=== PATIENT | male | born 1990 | race Caucasian/White ===

== ENCOUNTER → 2018-02-04 14:10 | Outpatient (CLI) | payer OTHER, SELFPAY ==
[2018-02-04 15:41] LABS: Absolute Lymphocyte Count 1.43 X10^3/ul (0.83-4.51); Absolute Neutrophil Count 1.9 X10^3/uL (2.0-7.7); Basophil# 0.01 X10^3/uL; Basophil% 0.3 % (0-1); Eosinophil# 0.08 X10^3/uL; Eosinophils% 2.1 % (0-5); Hematocrit 43.8 % (40-54); Hemoglobin 14.3 g/dl (13.0-16.5); Lymphocyte # 1.43 X10^3/ul (4.0); Lymphocyte % 37.3 % (19-41); Mean Corp Hgb Conc 32.6 g/gl (32-36); Mean Corpuscular Volume 88.8 fL (80-94); Mean Platelet Vol. 10.8 fl (6.2-12.0); Monocyte# 0.37 X10^3/uL; Monocyte% 9.7 % (0-10); Neutrophil # 1.94 X10^3/uL (2.7-7.7); Neutrophil % 50.6 % (47-70); Platelet Count 186 K/mm3 (150-450); RBC Distribution Width CV 12.8 % (11.6-14.6); RBC Distribution Width SD 41.2 fl (35.1-43.9); Red Blood Count 4.93 M/mm3 (4.6-6.2); White Blood Count 3.8 K/mm3 (4.4-11.0)
[2018-02-04 15:44] LABS: Vitamin B12 893 pg/mL (211-911); Vitamin D,25 Hydroxy 19.9 ng/mL (29.95-100.01)
[2018-02-04 15:47] LABS: ALB/GLOB Ratio 1.5 RATIO (0.9-2.4); AST(SGOT) 22 U/L (15-37); Alanine Aminotransfer ALT/SGPT 35 U/L (16-61); Albumin, Serum 4.2 g/dL (3.2-5.0); Alkaline Phosphatase 89 U/L (45-117); Anion Gap 8 (5-15); BUN 6 mg/dL (7-18); BUN/Creat Ratio 6.1 RATIO (10-20); Calcium,Total 8.8 mg/dL (8.5-10.1); Chloride 101 mmol/L (98-107); Creatinine, Serum 0.98 mg/dL (0.70-1.30); EST Glomerular Filtration Rate 96 mL/min (>60); Est Glom Filt Rate - Afr Amer 116 mL/min (>60); Globulin 2.8 g/dL (2.2-4.2); Glucose 85 mg/dL (74-106); Iron 132 ug/dL (65-175); Potassium 3.6 mmol/L (3.5-5.1); Sodium Level 139 mmol/L (136-145); Thyroid Stim Hormone (TSH) 1.08 uIU/mL (0.358-3.74)
[2018-02-04 16:01] LABS: POSITIVE COUNT NO; POSITIVE DIFFERENTIAL NO; POSITIVE MORPHOLOGY NO
== END ==
PROVIDERS: Family Provider Family Medicine; PCP Family Medicine; Referring Provider Family Medicine; Visit Provider Family Medicine
DX: R53.83 Other fatigue (principal)
CPT/HCPCS: 36415; 80053; 82306; 82607; 83540; 84443; 85025

== ENCOUNTER → 2018-03-05 07:11 | Outpatient (CLI) | payer OTHER, SELFPAY ==
--- NOTE | 2018-03-05 07:13 | MRI_ITS ---
STUDY: MRI BRAIN WITHOUT CONTRAST REASON FOR EXAM: Male, 27 years old. mental confusion, frequent headaches, disorientation. TECHNIQUE: Standardized multiplanar fat and water weighted pulse sequences were obtained. COMPARISON: None. FINDINGS: Normal size of the ventricles and extra-axial spaces for the patient's age. Normal white matter tracts of the supratentorial brain. Normal bilateral basal ganglia. Normal thalami. There is no extra-axial fluid accumulation. Normal flow voids within the major intracranial circulation suggesting patency by spin echo criteria. Normal sella turcica, pituitary gland, infundibular stalk, optic chiasm and hypothalamus. Normal tectal plate and pineal gland. Normal midbrain, francisco and medulla. Normal cerebellum. Normal basal cisterns. Normal bilateral temporal bones. Normal bilateral internal auditory canals. No demonstrated orbital abnormality, within the constraints of a routine brain study. Normal visualized paranasal sinuses. Normal calvarium and skull base. Normal visualized soft tissue structures. Normal visualized upper cervical spine. MRI/Brain without Contrast IMPRESSION: Normal unenhanced MRI of the brain. Electronically Signed: Andrea Conley MD at 15:56 EST Tel , Service support ,
--- OUTSIDE RECORDS SUMMARY | 2018-04-21 05:33 | XMS RPT_ITS ---
:1990 Author Organization [facility] Address [address] [place] [address] Phone Care Team Providers Name Role Phone Janey Mejias Unavailable Unavailable Conditions or Problems Problem Name Problem Onset Status Entry Provider Comment Standard Annotate Code Date Date Description Sinusitis - 36001710 Active Brendan Thomas Acute sinusitis acute (SNOMED CT) / Meliton HURTADO Sinus 02547973 Active Brendan Thomas Congestion of congestion (SNOMED CT) / Meliton HURTADO nasal sinus Rhinosinusit 079756995 Active Bakari D Acute is, acute (SNOMED CT) / Rashaun HUTRADO rhinosinusitis Sore throat 196762098 Active Bakari Matt Pain in throat (acute) (SNOMED CT) / Rashaun HURTADO Medications Medication Instructions Start Stop Generic Name [facility] Provider Date Date AMOXICILLIN 500 2 capsules twice AMOXICILLIN 02619163511 Brendan M MG CAPS daily 7 Meliton HURTADO AMOXICILLIN-POT Take one tab AMOXICILLIN-POT 80151622036 Bakari D CLAVULANATE Twice daily CLAVULANATE Rashaun HURTADO 875-125 MG TABS CLARITIN 10 MG as directed LORATADINE 87049803330 Bakari D CAPS 8 Rashaun HURTADO NEXIUM 24HR as directed ESOMEPRAZOLE 80911110707 Bakari D TBEC 8 MAGNESIUM TBEC Rashaun HURTADO Medications Administered No information available. Allergies, Adverse Reactions, Alerts Observed no known allergies at Results Date Name Value Unit Range Flag Description Office Visit: UC: Sore Throat RAPID STREP negative Streptococcus pyogenes DNA [Presence] in Throat by Probe and target amplification method Office Visit: uc: sinusitis MEDS REVIEW Done Documentation of current medications (procedure) FALLRSKASSES No Fall risk assessment ORALTOBACUSE Never Tobacco smoking status NHIS SMOK STATUS Never smoker Tobacco use [facility] Plan of Care Type Date Detail Appointment 04:30 PM Brendan HURTADO, [address] [place] [address], [address], [place], [address], Patient education SINUSITIS Procedures Code Procedure Name Date Entry Date CPT-20569 Rapid Strep (Office) Vital Signs Date Name Value Unit Description BMI (Body Mass Index) 23.46 kg/m2 Body Mass Index [Ratio] Body Temperature 98.3 [degF] temperature E&M BP Diastolic 72 mm[Hg] blood pressure, diastolic - 8462-4 BP Systolic 96 mm[Hg] blood pressure, systolic - 8480-6 Heart Rate 88 /min pulse rate E&M - 8867-4 Height 72 [in_us] height E&M - 8302-2 Respiratory Rate 18 /min respiratory rate E&M - 9279-1 Weight Measured 173 [lb_av] weight E&M - 3141-9
--- OUTSIDE RECORDS SUMMARY | 2018-04-21 05:33 | XMS RPT_ITS ---
:1990 Author Organization [employer] [facility] Address [address] [place] [address] Phone Care Team Providers Name Role Phone Janey Mejias Unavailable Unavailable Conditions or Problems Problem Name Problem Onset Status Entry Provider Comment Standard Annotate Code Date Date Description Sinusitis - 44309029 Active Brendan Thomas Acute sinusitis acute (SNOMED CT) / Meliton HURTADO Sinus 71581446 Active Brendan Thomas Congestion of congestion (SNOMED CT) / Meliton HURTADO nasal sinus Rhinosinusit 766738508 Active Bakari D Acute is, acute (SNOMED CT) / Rashaun HURTADO rhinosinusitis Sore throat 456912056 Active Bakari Matt Pain in throat (acute) (SNOMED CT) / Rashaun HURTADO Medications Medication Instructions Start Stop Generic Name [facility] Provider Date Date AMOXICILLIN 500 2 capsules twice AMOXICILLIN 02973088171 Brendan M MG CAPS daily 7 Meliton HURTADO AMOXICILLIN-POT Take one tab AMOXICILLIN-POT 63436322118 Bakari D CLAVULANATE Twice daily CLAVULANATE Rashaun HURTADO 875-125 MG TABS CLARITIN 10 MG as directed LORATADINE 70504286342 Bakari D CAPS 8 Rashaun HURTADO NEXIUM 24HR as directed ESOMEPRAZOLE 48223339335 Bakari D TBEC 8 MAGNESIUM TBEC Rashaun [...] NHIS SMOK STATUS Never smoker Tobacco use [facility] Plan of Care Type Date Detail Patient education SINUSITIS Procedures Code Procedure Name Date Entry Date CPT-63374 Rapid Strep (Office) Vital Signs Date Name [...]
--- OUTSIDE RECORDS SUMMARY | 2018-04-21 05:34 | XMS RPT_ITS ---
:1990 Author Organization [facility] Care Team Providers Name Role Phone Bipin Cunningham Attending Unavailable Bipin Cunningham Referring Unavailable Sona Craft Primary Care Unavailable Bipin Cunningham Attending Unavailable Bipin Cunningham Referring Unavailable Sona Craft Primary Care Unavailable JOAN ALTAMIRANO Attending Unavailable Bipin Cunningham Primary Care Unavailable PROBLEMS PROBLEMS No Problem Records FoundPROCEDURES PROCEDURES No Procedure Records FoundRESULTS RESULTS EMERGENCY DEPARTMENT Observed: 03/31/2018 Status: F Source: [place] SUMMARY 3:43 AM [facility] Medical Records Department [address] [place] [address] Emergency Department Summary 03/31/18 0338 MR#: [id number] Acct: [id number] Name: TAE DURAN Rep #: [id number] : 1990 28 From: Joan Altamirano MD PCP: Bipin Cunningham MD Status: REG ER History of Present Illness Chief Complaint: Headache Informant: Patient Onset: 2 Timing: Continuous Quality: throbbing Location: right fronto-temporal, and retroorbital Current Severity: Severe Maximum Severity: Severe Worsened by: light Relieved by: nothing, not by Imitrex Associated Symptoms: no n/v/vision chg, no periph neuro sx Narrative: Patient was taking minocycline for a couple of months and developed these headaches which is a possible side effect, he was recently switched to doxycycline and still having the headaches. He has undergone several encounters with his PCP, including a workup that includes an MRI that was unremarkable. He was placed on Imitrex, sometimes it helps his discomfort and other times it does not, he took 2 pills about 24 hours apart in the past 2 days but he cannot get this headache to go away. No medications in the last 8 hours. There are no new features or symptoms. - Past Medical History (1) Rosacea Status: Chronic Past Medical History - Allergies and Home Meds Allergies/Adverse Reactions: Allergies No Known Allergies Allergy (Verified 03/17/13 10:18) Primary Care Physician: Sona Craft MD [STAFF PHYSICIAN] - Smoking Status: Never smoker Drugs: None Review of Systems General: Reports: Malaise. Denies: Chills, Fever, Sweats Eyes: Denies: Visual changes - bilaterally, Diplopia ENT: Denies: Rhinorrhea, Sore throat Cardiovascular: Denies: Chest pain, Palpitations Respiratory: Denies: Dyspnea, Cough, Dyspnea on exertion Gastrointestinal: Denies: Abdominal pain, Nausea, Vomiting, Diarrhea, Melena, Hematochezia Genitourinary: Denies: Dysuria, Hematuria, Frequency Musculoskeletal: Denies: Neck pain, Back pain, Extremity Pain Skin: Denies: Rash Neurological: Reports: Headache. Denies: Weakness, Numbness Physical Exam Vital Signs/Narrative: Vital Signs 03/31/18 03:22 75 15 128/83 H 97 03/31/18 01:34 96.9 F L 81 18 138/85 H 99 Inital Vital Signs reviewed: Yes General: Well nourished, Well developed Head: Normocephalic, Atraumatic Eyes: Perrl, EOMI, - - Mild photophobia bilaterally ENT: Moist mucous membranes, No rhinorrhea Neck: Supple, Nontender, No lymphadenopathy Cardiovascular: Regular rate, Regular rhythm, No murmurs Respiratory: No distress, CTA bilaterally, Chest nontender Back: Nontender, Normal Inspection Extremities: Nontender, No edema Skin: Normal color, No rash Neurological: Alert, Oriented x3, Cranial nerves II-XII grossly intact, Normal Strength, Normal Sensation, Normal Gait Psychological: Normal affect Diagnostic/Tx/Re-eval - Medical Decision Making I do not think further emergent workup is indicated given the history. Patient agrees. IV was placed he was given fluid, Toradol, Reglan and his headache is completely gone on reevaluation. He is comfortable going home. Will prescribe him Reglan to use as needed and have him follow-up with his doctor. ED Disposition - Plan for ED Patient: Disposition: Home or Assisted Living Chief Complaint: Headache Diagnosis: Migraine headache Instructions: ED Headache Migraine Prescriptions: Metoclopramide [Reglan] 10 mg PO Q6H PRN PRN #15 tab PRN Reason: headache/nausea Referrals: Sona Craft MD [STAFF PHYSICIAN] - 3-5 Days if not improving What to do if you have Problems For any increased pain, shortness of breath, bleeding, nausea or vomiting, chest pain, or any unexpected problems, contact your Primary Care Provider. Call [facility] ([phone]) or report to the closest Emergency Room. Call 911 if necessary. 03/31/18 0343 <Electronically signed by Joan Altamirano MD> Date Joan Yarbroughignnorberto Signature (If Indicated): Date CC: Bipin Cunningham MD BRAIN WITHOUT Observed: 03/05/2018 Status: F Source: [place] CONTRAST 7:13 AM [facility] Imaging Services [address] [place] [address] Brain without Contrast MR#: [id number] Acct: [id number] Name: TAE DURAN Rep #: [id number] : 1990 M 27 From: Andrea Conley PCP: Sona Craft MD Status: REG CLI Study: Brain without Contrast Date of Exam: 03/05/18 Exam# [id number] Ordering Dr: Surjit Cunningham MD STUDY: MRI BRAIN WITHOUT CONTRAST REASON FOR EXAM: Male, 27 years old. mental confusion, frequent headaches, disorientation. TECHNIQUE: Standardized multiplanar fat and water weighted pulse sequences were obtained. COMPARISON: None. FINDINGS: Normal size of the ventricles and extra-axial spaces for the patient's age. Normal white matter tracts of the supratentorial brain. Normal bilateral basal ganglia. Normal thalami. There is no extra-axial fluid accumulation. Normal flow voids within the major intracranial circulation suggesting patency by spin echo criteria. Normal sella turcica, pituitary gland, infundibular stalk, optic chiasm and hypothalamus. Normal tectal plate and pineal gland. Normal midbrain, francisco and medulla. Normal cerebellum. Normal basal cisterns. Normal bilateral temporal bones. Normal bilateral internal auditory canals. No demonstrated orbital abnormality, within the constraints of a routine brain study. Normal visualized paranasal sinuses. Normal calvarium and skull base. Normal visualized soft tissue structures. Normal visualized upper cervical spine. MRI/Brain without Contrast IMPRESSION: Normal unenhanced MRI of the brain. Electronically Signed: Andrea Conley MD at 15:56 EST Tel , Service support , CC: Sona Craft MD; Bipin Cunningham MD Top Tile Decorator: Signed VITAMIN B12 Collected: 02/04/2018 Status: F Source: [place] [address]:19 PM [facility] TYPE CODE TESTS RESULT OUT OF RANGE REFERENCE UNITS LAB L503.0105 211-911 pg/mL Normal Vitamin B12 893 Performed By: #### L503.0105, L506.1000, L500.4050, L501.9520, L503.6150, L100.0100 #### [facility] [address] [place], [address] VITAMIN D,25 HYDROXY Collected: 02/04/2018 Status: F Source: [place] 2:19 PM [facility] TYPE CODE TESTS RESULT OUT OF REFERENCE UNITS RANGE LAB L506.1000 29.95-100.01 ng/mL Low Vitamin D 19.9 25-OH Result Comment: Vitamin D 25(OH) Status Range Deficiency <20 ng/mL (50nmol/L) Insuffciency 20 - 30 ng/mL (50 - 75 nmol/L) Sufficiency 30 - 100 ng/mL (75 - 250 nmol/L) Toxicity >100 ng/mL (>250 nmol/L) Performed By: #### L503.0105, L506.1000, L500.4050, L501.9520, L503.6150, L100.0100 #### [facility] [address] [place], [address] COMPREHENSIVE METABOLIC Collected: 02/04/2018 Status: F Source: [place] [facility] 2:19 PM [facility] TYPE CODE TESTS RESULT OUT OF RANGE REFERENCE UNITS LAB L501.0100 74-106 mg/dL Normal GLU 85 Result Comment: Please note revised GLUCOSE reference range effective 2017. LAB L501.1000 7-18 mg/dL Low BUN 6 LAB L501.1100 0.70-1.30 mg/dL Normal CREAT,SERUM 0.98 Result Comment: The validity of the calculated GFR AND GFRAA in patients over 70 years has not been determined. Clinical correlation is essential. LAB L501.1110 >60 mL/min Normal EST GFR 96 Result Comment: Non- GFR Calc LAB L501.1115 >60 mL/min Normal EST GFR - AA 116 Result Comment: GFR Calc LAB L501.1300 10-20 RATIO Low BUN/CRE 6.1 LAB L501.1500 6.4-8.2 g/dL Normal T PROT 7.0 LAB L501.1800 3.2-5.0 g/dL Normal ALB 4.2 LAB L501.1950 2.2-4.2 g/dL Normal GLOB 2.8 LAB L501.2000 0.9-2.4 RATIO Normal A/G 1.5 LAB L501.2200 8.5-10.1 mg/dL Normal CA 8.8 LAB L501.4100 15-37 U/L Normal AST 22 LAB L501.4305 45-117 U/L Normal ALK P 89 LAB L501.4405 16-61 U/L Normal ALT 35 LAB L501.4600 0.20-1.00 mg/dL Normal T BILI 0.90 LAB L501.5300 136-145 mmol/L Normal NA 139 LAB L501.5600 3.5-5.1 mmol/L Normal K 3.6 LAB L501.5900 98-107 mmol/L Normal CL 101 LAB L501.6100 21.0-32.0 mmol/L Normal CO2 30.0 LAB L501.6200 5-15 Normal GAP 8 Performed By: #### L503.0105, L506.1000, L500.4050, L501.9520, L503.6150, L100.0100 #### [facility] [address] [place], [place], [id number] THYROID STIM HORMONE Collected: 02/04/2018 Status: F Source: [place] ([place]) 2:19 PM [facility] TYPE CODE TESTS RESULT OUT OF RANGE REFERENCE UNITS LAB L501.9520 0.358-3.74 uIU/mL Normal TSH 1.08 Performed By: #### L503.0105, L506.1000, L500.4050, L501.9520, L503.6150, L100.0100 #### [facility] [address] [place], [place], [address] IRON Collected: 02/04/2018 Status: F Source: [place] 2:19 PM [facility] TYPE CODE TESTS RESULT OUT OF RANGE REFERENCE UNITS LAB L503.6150 65-175 ug/dL Normal IRON 132 Performed By: #### L503.0105, L506.1000, L500.4050, L501.9520, L503.6150, L100.0100 #### [facility] [place], [address] CBC W/DIFF, AUTOMATED Collected: 02/04/2018 Status: F Source: [place] 2:19 PM [facility] TYPE CODE TESTS RESULT OUT OF RANGE REFERENCE UNITS LAB L100.1000 4.4-11.0 K/mm3 Low WBC 3.8 LAB L100.1200 4.6-6.2 M/mm3 Normal RBC 4.93 LAB L100.1300 13.0-16.5 g/dl Normal HGB 14.3 LAB L100.1400 40-54 % Normal HCT 43.8 LAB L100.1500 80-94 fL Normal MCV 88.8 LAB L100.1600 27.0-32.0 pg Normal MCH 29.0 LAB L100.1700 32-36 g/gl Normal MCHC 32.6 LAB L100.1810 11.6-14.6 % Normal RDW CV 12.8 LAB L100.1820 35.1-43.9 fl Normal RDW SD 41.2 LAB L100.1900 150-450 K/mm3 Normal PLT 186 LAB L100.2000 6.2-12.0 fl Normal MPV 10.8 LAB L100.2100 47-70 % Normal NEUT% 50.6 LAB L100.2200 19-41 % Normal LY% 37.3 LAB L100.2300 0-10 % Normal MONO% 9.7 LAB L100.2400 0-5 % Normal EO% 2.1 LAB L100.2500 0-1 % Normal BASO% 0.3 LAB L100.2550 0.0-0.9 % Normal IM GRAN % 0.000 Result Comment: IG% - Immature Granulocytes (promyelocytes, myelocytes and metamyelocytes) > 1% indicates that a LEFT SHIFT is Present. LAB L100.2620 2.0-7.7 X10 3/uL Low Absolute Neut 1.9 LAB L100.2720 0.83-4.51 X10 3/ul Normal Absolute Lymph 1.43 Performed By: #### L503.0105, L506.1000, L500.4050, L501.9520, L503.6150, L100.0100 #### [facility] [address], [address] ALLERGIES ALLERGIES DATE TYPE / CODE NAME / CODE REACTION SEVERITY SOURCE 2013 Drug No Known Unknown [facility] Allergy/4160 Allergies/F00 Hospital 25420(SNOMED 4260753(RXNOR Repository CT) M) ENCOUNTERS ENCOUNTERS ADMIT/DISCHARGE ACCOUNT ADMITTING ENCOUNTER LOCATION SOURCE NUMBER CLASS 03/31/2018/ [id number] Emergency [place] 9 0 [facility] ing:ED Repository 03/05/2018 [id number] Ambulatory [place] 3 [facility] ing:MRI Repository 02/04/2018 [id number] Ambulatory [place] 5 [facility] ing:MTLAB Repository PAYERS PAYERS ENCOUNTER GUARANTOR PAYER SUBSCRIBER SOURCE 03/31/2018 [facility] Primary AERIAL M [place] [id number] Insurance:MEDICAL GERBERDOB: [facility] [id number] Number: Repository [address]Wop: 330 [id number] [phone] () Date:[id number] [address] [address]EW: 03/31/2018 Secondary NOT GIVENUNK [place] Insurance:SELF PAY [facility] Number: Effective Repository Date:2018-03-31 03/05/2018 [facility] Primary AERIAL M [place] [id number] Insurance:MEDICAL GERBERDOB: [facility] [id number] Number: Repository [id number]: 330 [id number] [phone] () Date:[id number] [address]BQ: 03/05/2018 Secondary NOT GIVENUNK [place] Insurance:SELF PAY [facility] Number: Effective Repository Date:2018-02-26 02/04/2018 [place] Primary AERIAL M [place] [id number] Insurance:MEDICAL GERBERDOB: [facility] [id number] Number: Repository [id number]: [phone] [id number] [phone] () Date:[id number] [address] [place] [address]IE: 02/04/2018 Secondary NOT GIVENUNK [place] Insurance:SELF PAY [facility] Number: Effective Repository Date:2018-02-04
== END ==
PROVIDERS: Family Provider Family Medicine; PCP Family Medicine; Referring Provider Family Medicine; Visit Provider Family Medicine
DX: R41.0 Disorientation, unspecified (principal)
CPT/HCPCS: 70551

== ENCOUNTER 2018-03-31 01:30 | Emergency (ER) | payer OTHER, SELFPAY ==
[2018-03-31 01:34] VITALS: BP 138/85; PULSE 81; RESP 18; TEMP 36.1; O2SAT 99; BMI 24.3
[2018-03-31] MEDS: Metoclopramide 10 MG/2 ML Vial IV (02:20)
[2018-03-31] MEDS: Ketorolac 30 MG/ML Syringe IV (02:20)
[2018-03-31 03:22] VITALS: BP 128/83; PULSE 75; RESP 15; O2SAT 97
--- NOTE | 2018-03-31 03:38 | ED.VIS.GEN ---
History of Present Illness Chief Complaint: Headache Informant: Patient Onset: Days - 2-3 Timing: Continuous Quality: throbbing Location: right fronto-temporal, and retroorbital Current Severity: Severe Maximum Severity: Severe Worsened by: light Relieved by: nothing, not by Imitrex Associated Symptoms: no n/v/vision chg, no periph neuro sx Narrative: Patient was taking minocycline for a couple of months and developed these headaches which is a possible side effect, he was recently switched to doxycycline and still having the headaches. He has undergone several encounters with his PCP, including a workup that includes an MRI that was unremarkable. He was placed on Imitrex, sometimes it helps his discomfort and other times it does not, he took 2 pills about 24 hours apart in the past 2 days but he cannot get this headache to go away. No medications in the last 8 hours. There are no new features or symptoms. - Past Medical History (1) Rosacea Status: Chronic Past Medical History - Allergies and Home Meds Allergies/Adverse Reactions: Allergies No Known Allergies Allergy (Verified 03/17/13 10:18) Primary Care Physician: Sona Craft MD [STAFF PHYSICIAN] - Smoking Status: Never smoker Drugs: None Review of Systems General: Reports: Malaise. Denies: Chills, Fever, Sweats Eyes: Denies: Visual changes - bilaterally, Diplopia ENT: Denies: Rhinorrhea, Sore throat Cardiovascular: Denies: Chest pain, Palpitations Respiratory: Denies: Dyspnea, Cough, Dyspnea on exertion Gastrointestinal: Denies: Abdominal pain, Nausea, Vomiting, Diarrhea, Melena, Hematochezia Genitourinary: Denies: Dysuria, Hematuria, Frequency Musculoskeletal: Denies: Neck pain, Back pain, Extremity Pain Skin: Denies: Rash Neurological: Reports: Headache. Denies: Weakness, Numbness Physical Exam Vital Signs/Narrative: Vital Signs Temp Pulse Resp BP Pulse Ox 03/31/18 03:22 75 15 128/83 H 97 03/31/18 01:34 96.9 F L 81 18 138/85 H 99 Inital Vital Signs reviewed: Yes General: Well nourished, Well developed Head: Normocephalic, Atraumatic Eyes: Perrl, EOMI, - - Mild photophobia bilaterally ENT: Moist mucous membranes, No rhinorrhea Neck: Supple, Nontender, No lymphadenopathy Cardiovascular: Regular rate, Regular rhythm, No murmurs Respiratory: No distress, CTA bilaterally, Chest nontender Back: Nontender, Normal Inspection Extremities: Nontender, No edema Skin: Normal color, No rash Neurological: Alert, Oriented x3, Cranial nerves II-XII grossly intact, Normal Strength, Normal Sensation, Normal Gait Psychological: Normal affect Diagnostic/Tx/Re-eval - Medical Decision Making I do not think further emergent workup is indicated given the history. Patient agrees. IV was placed he was given fluid, Toradol, Reglan and his headache is completely gone on reevaluation. He is comfortable going home. Will prescribe him Reglan to use as needed and have him follow-up with his doctor. ED Disposition - Plan for ED Patient: Disposition: Home or Assisted Living Chief Complaint: Headache Diagnosis: Migraine headache Instructions: ED Headache Migraine Prescriptions: Metoclopramide [Reglan] 10 mg PO Q6H PRN PRN #15 tab PRN Reason: headache/nausea Referrals: Sona Craft MD [STAFF PHYSICIAN] - 3-5 Days if not improving
== END 2018-03-31 03:49 | disposition home or self-care (01) ==
PROVIDERS: Emergency Provider Emergency Medicine; Family Provider Family Medicine; PCP Family Medicine
DX: G43.909 Migraine, unspecified, not intractable, without status migrainosus (principal); Z79.899 Other long term (current) drug therapy
CPT/HCPCS: 96361; 96374; 96375; 99283; J7030; J7040; A4216

== ENCOUNTER → 2018-08-02 08:17 | Outpatient (CLI) | payer OTHER, SELFPAY ==
--- NOTE | 2018-08-02 08:30 | RAD_ITS ---
STUDY: AIR-CONTRAST UPPER GI SERIES. REASON FOR EXAM: Male, 28 years old. Increasing gastroesophageal reflux. FLUOROSCOPY TIME (if supplied): (0:48) minutes/seconds. 18 images were obtained. TECHNIQUE: The patient ingested barium. Multiple images of the esophagus, stomach and duodenum were obtained. COMPARISON: None. FINDINGS: The esophagus is unremarkable. There is no evidence of gastroesophageal reflux. No mass lesion is seen. The stomach and duodenum are unremarkable as well. There is no evidence of ulceration. RAD/Upper GI Series Only IMPRESSION: Unremarkable air-contrast upper GI series. Electronically Signed: Easton Arriaga, at 15:13 EDT , Service support ,
== END ==
PROVIDERS: Family Provider Family Medicine; PCP Family Medicine; Referring Provider Family Medicine; Visit Provider Family Medicine
DX: K29.70 Gastritis, unspecified, without bleeding (principal)
CPT/HCPCS: 74246

== ENCOUNTER → 2018-08-12 | Outpatient (CLI) | payer OTHER, SELFPAY ==
[2018-08-12 17:27] LABS: Absolute Lymphocyte Count 1.48 X10^3/ul (0.83-4.51); Absolute Neutrophil Count 3.1 X10^3/uL (2.0-7.7); Basophil# 0.01 X10^3/uL; Basophil% 0.2 % (0-1); Eosinophil# 0.15 X10^3/uL; Eosinophils% 2.9 % (0-5); Hematocrit 43.4 % (40-54); Hemoglobin 14.5 g/dl (13.0-16.5); Lymphocyte # 1.48 X10^3/ul (4.0); Lymphocyte % 28.2 % (19-41); Mean Corp Hgb Conc 33.4 g/gl (32-36); Mean Corpuscular Hgb 28.8 pg (27.0-32.0); Mean Corpuscular Volume 86.1 fL (80-94); Mean Platelet Vol. 10.5 fl (6.2-12.0); Monocyte# 0.49 X10^3/uL; Monocyte% 9.3 % (0-10); Neutrophil # 3.12 X10^3/uL (2.7-7.7); Neutrophil % 59.4 % (47-70); Platelet Count 194 K/mm3 (150-450); RBC Distribution Width CV 12.8 % (11.6-14.6); RBC Distribution Width SD 40.5 fl (35.1-43.9); Red Blood Count 5.04 M/mm3 (4.6-6.2); White Blood Count 5.3 K/mm3 (4.4-11.0)
[2018-08-12 17:31] LABS: POSITIVE COUNT NO; POSITIVE DIFFERENTIAL NO; POSITIVE MORPHOLOGY NO
[2018-08-12 17:54] LABS: ALB/GLOB Ratio 1.3 RATIO (0.9-2.4); AST(SGOT) 21 U/L (15-37); Alanine Aminotransfer ALT/SGPT 32 U/L (16-61); Albumin, Serum 3.9 g/dL (3.2-5.0); Alkaline Phosphatase 91 U/L (45-117); Anion Gap 5 (5-15); BUN 7 mg/dL (7-18); Chloride 107 mmol/L (98-107); EST Glomerular Filtration Rate 94 mL/min (>60); Est Glom Filt Rate - Afr Amer 114 mL/min (>60); Globulin 3.1 g/dL (2.2-4.2); Glucose 102 mg/dL (74-106); Potassium 3.9 mmol/L (3.5-5.1); Sodium Level 141 mmol/L (136-145)
[2018-08-14 12:09] LABS: H. Pylori Antibody (IgG) 0.45 (0.00-0.79)
== END | disposition home or self-care (01) ==
LOC: LAB 16:12
PROVIDERS: Family Provider Family Medicine; PCP Family Medicine; Referring Provider Family Medicine; Visit Provider Family Medicine
DX: K29.70 Gastritis, unspecified, without bleeding (principal)
CPT/HCPCS: 36415; 80053; 85025; 86677

== ENCOUNTER → 2019-08-13 06:38 | Outpatient (CLI) | payer OTHER, SELFPAY ==
[2018-11-07 15:47] VITALS: BMI 24.3
--- NOTE | 2019-08-13 06:43 | MRI_ITS ---
STUDY: MRI BRAIN WITH AND WITHOUT CONTRAST REASON FOR EXAM: Male, 29 years old. idiopathetic central sleep apnea TECHNIQUE: Standardized multiplanar fat and water weighted pulse sequences were obtained. 19 mL of IV DOTAREM was administered for the contrast portion of the examination. COMPARISON: MRI brain without contrast 03/05/2018. FINDINGS: No restricted diffusion throughout the brain parenchyma. No focal signal abnormalities throughout the brain parenchyma in all of the pulse sequences. Normal size of the ventricles and extra-axial spaces for the patient''s age. Normal white matter tracts of the supratentorial brain. Normal bilateral basal ganglia. Normal thalami. There is no extra-axial fluid accumulation. Normal flow voids within the major intracranial circulation suggesting patency by spin echo criteria. Normal venous enhancement. There is no enhancing intra-axial or extra-axial abnormality. Normal sella turcica, pituitary gland, infundibular stalk, optic chiasm and hypothalamus. Normal tectal plate and pineal gland. Normal midbrain, francisco and medulla. Normal cerebellum. Normal basal cisterns. Normal bilateral temporal bones. Normal bilateral internal auditory canals. No demonstrated orbital abnormality, within the constraints of a routine brain study. Normal visualized paranasal sinuses. Normal calvarium and skull base. Normal visualized soft tissue structures. Normal visualized upper cervical spine. MRI/Brain W/WO Contrast IMPRESSION: 1. Normal unenhanced and enhanced MRI of the brain. 2. No interval change when compared to MRI brain without contrast 03/05/2018. Electronically Signed: Yovani Hardin MD at 9:16 EDT , Service support ,
--- NOTE | 2019-08-13 07:46 | ECHOD_ITS ---
Reason For Study: PALPITAIONS Procedure This was a 2D Doppler, Color Flow transthoracic echocardiogram. Exam performed in department. Left Ventricle Normal LV size. Apical false tendon noted. Left ventricular systolic function is lower limits of normal. Normal diastology for age. No regional wall motion abnormalities noted. Right Ventricle Normal RV size. Normal systolic function. Atria Normal left atrium. Normal right atrium. Mitral Valve Normal mitral valve. Tricuspid Valve Normal tricuspid valve. Mild tricuspid valve insufficiency. Pulmonary artery systolic pressure is 26 mmHg. Aortic Valve Normal aortic valve. Trisinus/trileaflet aortic valve. Pulmonic Valve Normal pulmonic valve. Great Vessels Normal aortic root. The pulmonary artery is normal size. Normal inferior vena cava. Inferior vena cava collapse with sniff. Pericardium/Pleural No pericardial effusion. MMode/2D Measurements & Calculations LVIDd: 4.5 cm IVSd: 1.0 cm Ao root diam: 3.6 cm LVIDs: 3.2 cm LVPWd: 0.89 cm RVDd: 3.4 cm FS: 28.4 % LAV(MOD-bp): 27.4 ml LA A4 area: 11.0 cm2 LA dimension(2D): 3.5 cm LAV(MOD-bp) Indexed: 12.5 ml/m2 LAV(MOD-sp2): 33.5 ml LAV(MOD-sp4): 23.1 ml RA A4 area: 12.6 cm2 Time Measurements MV dec time: 0.36 sec Doppler Measurements & Calculations MV E max petey: 51.8 cm/sec Lat Peak E' Petey: 13.7 cm/sec Med Peak E' Petey: 9.6 cm/sec MV A max petey: 63.7 cm/sec E/E' lat: 3.8 E/E' med: 5.4 MV E/A: 0.81 Ao V2 max: 87.3 cm/sec LV V1 max: 85.8 cm/sec PA V2 max: 88.4 cm/sec Ao max P.0 mmHg LV V1 max P.9 mmHg PI end-d petey: 98.4 cm/sec TR max petey: 239.9 cm/sec TR max P.0 mmHg Interpretation Summary Normal LV size. Left ventricular systolic function is lower limits of normal. Normal diastology for age. Mild tricuspid valve insufficiency. Apical false tendon noted. Ordering Physician: Solitario Roldan Referring Physician: FAREED SOMMER Performed By: Ana Victor RDCS, RVT
== END ==
PROVIDERS: PCP Family Medicine; Referring Provider Psychiatry & Neurology Neurology; Visit Provider Psychiatry & Neurology Neurology
DX: R06.00 Dyspnea, unspecified (principal); G47.31 Primary central sleep apnea
CPT/HCPCS: 70553; 93306; A9575

== ENCOUNTER → 2019-12-10 | Outpatient (CLI) | payer OTHER, SELFPAY ==
[2018-11-07 15:47] VITALS: BMI 24.3
[2019-12-10 18:09] LABS: Absolute Lymphocyte Count 2.03 X10^3/uL (0.83-4.51); Basophil# 0.02 X10^3/uL; Basophil% 0.4 % (0-1); Eosinophils% 1.8 % (0-5); Hemoglobin 14.2 g/dL (13.0-16.5); Lymphocyte # 2.03 X10^3/ul (4.0); Lymphocyte % 35.6 % (19-41); Mean Corp Hgb Conc 32.3 g/dL (32-36); Mean Corpuscular Hgb 28.6 pg (27.0-32.0); Mean Corpuscular Volume 88.7 fL (80-94); Mean Platelet Vol. 10.9 fl (6.2-12.0); Monocyte# 0.59 X10^3/uL; Monocyte% 10.3 % (0-10); NRBC Flagged by Analyzer 0 % (0-5); Neutrophil # 2.96 X10^3/uL (2.7-7.7); Neutrophil % 51.7 % (47-70); Platelet Count 227 K/mm3 (150-450); RBC Distribution Width CV 12.2 % (11.6-14.6); RBC Distribution Width SD 39.5 fl (35.1-43.9); Red Blood Count 4.96 M/mm3 (4.6-6.2); White Blood Count 5.7 K/mm3 (4.4-11.0)
[2019-12-10 18:57] LABS: ALB/GLOB Ratio 1.4 RATIO (0.9-2.4); AST(SGOT) 18 U/L (15-37); Alanine Aminotransfer ALT/SGPT 26 U/L (16-61); Albumin, Serum 4.2 g/dL (3.2-5.0); Alkaline Phosphatase 86 U/L (45-117); Anion Gap 4 (5-15); BUN 8 mg/dL (7-18); BUN/Creat Ratio 8.3 RATIO (10-20); Calcium,Total 9.1 mg/dL (8.5-10.1); Chloride 106 mmol/L (98-107); Creatinine, Serum 0.96 mg/dL (0.70-1.30); EST Glomerular Filtration Rate 97 mL/min (>60); Est Glom Filt Rate - Afr Amer 117 mL/min (>60); Glucose 90 mg/dL (74-106); Magnesium 2.2 mg/dL (1.6-2.6); Potassium 3.9 mmol/L (3.5-5.1); Protein, Total 7.2 g/dL (6.4-8.2); Sodium Level 139 mmol/L (136-145); Thyroid Stim Hormone (TSH) 1.24 uIU/mL (0.358-3.74)
== END | disposition home or self-care (01) ==
LOC: MFPLAB 16:51
PROVIDERS: Family Medicine; PCP Family Medicine; Referring Provider Family Medicine; Visit Provider Family Medicine
DX: R00.0 Tachycardia, unspecified (principal)
CPT/HCPCS: 36415; 80053; 83735; 84443; 85025

== ENCOUNTER → 2019-12-30 | Outpatient (CLI) | payer OTHER, SELFPAY ==
[2019-12-22 11:32] VITALS: BMI 24.1
== END | disposition home or self-care (01) ==
LOC: PSN 10:45
PROVIDERS: PCP Family Medicine; Referring Provider Specialist; Visit Provider Specialist
DX: R00.2 Palpitations (principal); R00.0 Tachycardia, unspecified
CPT/HCPCS: 93225; 93226

== ENCOUNTER 2020-08-31 14:09 | Emergency (ER) | payer OTHER, SELFPAY ==
[2020-02-04 15:02] VITALS: BMI 24.1
[2020-08-31 14:11] VITALS: BP 114/83; PULSE 97; RESP 17; TEMP 36.1; O2SAT 100; BMI 24.8
--- NOTE | 2020-08-31 14:17 | EKG12_ITS ---
Test Reason : AB PAIN Blood Pressure : / mmHG Vent. Rate : 110 BPM Atrial Rate : 110 BPM P-R Int : 130 ms QRS Dur : 082 ms QT Int : 350 ms P-R-T Axes : 064 017 048 degrees QTc Int : 473 ms Sinus tachycardia Possible Left atrial enlargement Borderline ECG Confirmed by DANE JOHNSON, JOHNNY ([id number]), online editor ANIBAL COYLE ([id number]) on 09/03/2020 8:24:30 AM Referred By: Confirmed By:JOHNNY VELA MD
[2020-08-31] MEDS: 0.9% Normal Saline 1,000 ML 1000 ML IV (14:23)
[2020-08-31] MEDS: Ondansetron 4 MG/2 ML Vial IV (14:23)
--- NOTE | 2020-08-31 14:26 | EDS_ITS ---
HPI History of Present Illness Chief Complaint: Nausea/Vomiting Informant: patient Onset/Context/Timing Onset: Yesterday Context: Gradual Onset Timing: Continuous Current Severity: Moderate Maximum Severity: Severe Narrative Narrative: Patient is a 30-year-old male medical history significant for central sleep apnea who presents to the emergency department nausea and vomiting. The patient states his symptoms began yesterday. He states he had diffuse epigastric pain into his abdomen. He states shortly thereafter, he had multiple episodes of emesis. He states that today, has been trying to drink fluids but then had more vomiting. He states shortly after, he became lightheaded, had tingling around his mouth and in his hands. He states he felt like he was going pass out. He does have history of prior appendectomy. He denies any drug use. He is otherwise been in his normal state of health. Prior similar symptoms: No Recent Illness/Hospitalization: No [facility] Medical History Anxiety and depression Central sleep apnea Chronic neck and back pain GERD (gastroesophageal reflux disease) Maxillary sinusitis, acute Migraines Palpitations Rosacea Tachycardia Home Medications cetirizine 10 mg PO DAILY 03/31/18 [History Last Taken Unknown] cholecalciferol (vitamin D3) 100 mcg (4,000 unit) tablet 100 mcg PO DAILY 12/19/19 [History Last Taken Unknown] duloxetine 60 mg capsule,delayed release 60 mg PO DAILY cap 12/19/19 [History Last Taken Unknown] pantoprazole 40 mg tablet,delayed release 40 mg PO DAILY 12/19/19 [History Last Taken Unknown] metoclopramide HCl 10 mg tablet 10 mg PO DAILY PRN tab 12/22/19 [History Last Taken Unknown] modafinil 200 mg tablet 200 mg PO QAM PRN 12/22/19 [History Last Taken Unknown] vojujsdw-cvqsweho-iyfjv acid 400 mcg-vit K 20 mcg-lycop 300 mcg tablet 1 tab PO DAILY 12/22/19 [History Last Taken Unknown] sumatriptan succinate 50 mg tablet 50 mg PO ONCE 12/22/19 [History Last Taken Unknown] famotidine 40 mg PO DAILY 08/31/20 [History Last Taken Unknown] ondansetron 4 mg PO Q8H PRN PRN #10 tab 08/31/20 [Rx Last Taken Unknown] sucralfate [Carafate] 1 g PO BID #60 tab 08/31/20 [Rx Last Taken Unknown] Allergy/AdvReac Type Severity Reaction Status Date / Time tetracycline Allergy Mild unknown Verified 08/31/20 14:10 Family History Mother Breast cancer Grandfather Cancer Grandmother Cancer Surgical History History of back surgery History of endoscopy Social History Smoking Status: Never smoker alcohol intake: never substance use type: does not use caffeine: Yes Type: carbonated beverages and coffee Number of servings: 2 ROS ROS ED Constitutional Constitutional ED: Denies chills or fever(s) Eyes Eyes: Denies blurry vision or change in vision ENT ENT ED: Denies ear pain or sore throat Cardiovascular Cardiovascular: Reports palpitations and racing heartbeat Respiratory/Chest Respiratory/Chest: Denies cough, dyspnea or dyspnea on exertion Gastrointestinal Gastrointestinal: Reports nausea and vomiting Genitourinary Genitourinary ED: Denies dysuria or urinary frequency Musculoskeletal Musculoskeletal: Denies arthralgias or myalgias Integumentary Denies rash Neurologic Neurologic: Denies headache(s) or paresthesias Psychiatric Psychiatric: Denies anxiety or depression Endocrine Endocrinology: Denies polydipsia or polyuria Allergic/Immunologic Allergic/Immunologic ED: Denies urticaria EXAM Physical Exam Const Vital Signs: 08/31/20 14:11 Temperature 96.9 F L Temperature Source Temporal Pulse Rate 97 Respiratory Rate 17 Blood Pressure 114/83 H Blood Pressure Mean 93 Pulse Ox 100 Oxygen Delivery Method Room Air Positive well nourished and well developed General Appearance ED: well developed HEENT Reports normocephalic, head/scalp atraumatic and moist mucous membranes Eyes PERRL and EOMs intact bilaterally Neck no lymphadenopathy and supple General: Negative for tenderness Chest Wall inspection of chest normal Resp normal respiratory effort and clear to auscultation bilaterally Cardio regular rate, regular rhythm and no murmurs GI normal to inspection, nondistended, normoactive bowel sounds Palpation: Negative for tender, guarding or rebound tenderness present Back/Spine no CVA tenderness Cervical Spine: Negative for cervical spine tenderness Thoracic Spine / Upper Back: Negative for thoracic spinal tenderness Extremity normal to inspection General Extremety ED: Negative for tenderness Neuro oriented x3 and CN's II-XII intact bilaterally Neuro Narrative: No focal deficits appreciated. Sensorium / Orientation: alert Psych mental status grossly normal Skin no rashes or lesions noted, no wounds and skin turgor normal MDM MDM MDM Narrative Medical decision making narrative: Patient presents with abdominal cramping, nausea, and vomiting. EKG was obtained on arrival with his epigastric pain. It was sinus rhythm without evidence of acute ischemia. The patient was given fluids and Zofran. Improvement of his nausea but was still complaining of tingling. Labs were obtained were unremarkable. Potassium was normal. Calcium was normal. His bicarb is normal. Patient was given more fluids and Ativan with significant improvement. With history of surgery and persistent emesis, I did obtain CT. There is no evidence of acute intra-abdominal process. The patient's been having significant heartburn. He is already on a PPI. I am going to add Carafate to his regimen. I do feel a lot of this is stress mediated. He states he is been under significant stress at work and at home. I do feel that he is safe for outpatient therapy. Impression 1. Nausea vomiting 2. Generalized weakness Lab Data Attestation: I reviewed the patient's lab results. Labs: Laboratory Results - last 24 hr 08/31/20 08/31/20 14:14 14:14 WBC 8.5 RBC 5.33 Hgb 15.1 Hct 45.6 MCV 85.6 MCH 28.3 MCHC 33.1 RDW Std Deviation 39.1 RDW Coeff of Radha 12.7 Plt Count 228 MPV 10.4 Immature Gran % (Auto) 0.100 Neut % (Auto) 77.2 H Lymph % (Auto) 9.7 L [place] % (Auto) 12.4 H Eos % (Auto) 0.5 Baso % (Auto) 0.1 Absolute Neuts (auto) 6.6 Absolute Lymphs (auto) 0.83 Nucleated RBC % 0 Sodium 139 Potassium 3.5 Chloride 104 Carbon Dioxide 26.0 Anion Gap 9 BUN 9 Creatinine 1.06 Estim Creat Clear Calc 120.68 Est GFR (MDRD) Af Amer 105 Est GFR (MDRD) Non-Af 86 BUN/Creatinine Ratio 8.5 L Glucose 103 Calcium 9.5 Total Bilirubin 0.80 AST 22 ALT 35 Alkaline Phosphatase 104 Total Protein 7.3 Albumin 4.1 Globulin 3.2 Albumin/Globulin Ratio 1.3 Lipase 111 Radiography Diagnostic Testing: Radiology Impression Abdomen/Pelvis CT 08/31/20 14:53 IMPRESSION: Scattered sigmoid diverticula. Electronically Signed: Easton Arriaga MD at 15:10 EDT , Service support , Discharge Plan Triage Chief Complaint: Nausea/Vomiting ED Provider: Ellis Alfaro Dx/Rx/DC Orders Instructions: ED Vomiting (Adult) Prescriptions: New ondansetron [ondansetron] 4 MG tablet 4 mg PO Q8H PRN PRN (Reason: Nausea) Qty: 10 RF: 0 sucralfate [Carafate] 1 gram tablet 1 g PO BID Qty: 60 RF: 0 No Action Men's Multivitamin 400-20-300 mcg tablet 1 tab PO DAILY RF: 0 modafinil 200 mg tablet 200 mg PO QAM PRNRF: 0 sumatriptan succinate 50 mg tablet 50 mg PO ONCE RF: 0 metoclopramide HCl 10 mg tablet 10 mg PO DAILY PRN (Reason: Nausea) RF: 0 duloxetine 60 mg capsule,delayed release(DR/EC) 60 mg PO DAILY RF: 0 pantoprazole 40 mg tablet,delayed release (DR/EC) 40 mg PO DAILY RF: 0 cholecalciferol (vitamin D3) 100 mcg (4,000 unit) tablet 100 mcg (4,000 unit) tablet 100 mcg PO DAILY RF: 0 cetirizine 10 MG capsule 10 mg PO DAILY RF: 0 famotidine 40 mg tablet 40 mg PO DAILY RF: 0 Primary Care Provider: Sona Craft Referrals: Sona Craft MD [Primary Care Provider] -
[2020-08-31 14:27] LABS: Absolute Lymphocyte Count 0.83 X10^3/uL (0.83-4.51); Absolute Neutrophil Count 6.6 X10^3/uL (2.0-7.7); Basophil# 0.01 X10^3/uL; Basophil% 0.1 % (0-1); Eosinophil# 0.04 X10^3/uL; Eosinophils% 0.5 % (0-5); Hematocrit 45.6 % (40-54); Hemoglobin 15.1 g/dL (13.0-16.5); Lymphocyte # 0.83 X10^3/ul (0.83-4.51); Lymphocyte % 9.7 % (19-41); Mean Corp Hgb Conc 33.1 g/dL (32-36); Mean Corpuscular Hgb 28.3 pg (27.0-32.0); Mean Corpuscular Volume 85.6 fL (80-94); Mean Platelet Vol. 10.4 fl (6.2-12.0); Monocyte# 1.06 X10^3/uL; Monocyte% 12.4 % (0-10); NRBC Flagged by Analyzer 0 % (0-5); Neutrophil # 6.58 X10^3/uL (2.7-7.7); Neutrophil % 77.2 % (47-70); Platelet Count 228 K/mm3 (150-450); RBC Distribution Width CV 12.7 % (11.6-14.6); RBC Distribution Width SD 39.1 fl (35.1-43.9); Red Blood Count 5.33 M/mm3 (4.6-6.2); White Blood Count 8.5 K/mm3 (4.4-11.0)
[2020-08-31 14:40] LABS: ALB/GLOB Ratio 1.3 RATIO (0.9-2.4); AST(SGOT) 22 U/L (15-37); Alanine Aminotransfer ALT/SGPT 35 U/L (16-61); Albumin, Serum 4.1 g/dL (3.2-5.0); Alkaline Phosphatase 104 U/L (45-117); Anion Gap 9 (5-15); BUN 9 mg/dL (7-18); BUN/Creat Ratio 8.5 RATIO (10-20); Calcium,Total 9.5 mg/dL (8.5-10.1); Chloride 104 mmol/L (98-107); Creatinine, Serum 1.06 mg/dL (0.70-1.30); EST Glomerular Filtration Rate 86 mL/min (>60); Est Glom Filt Rate - Afr Amer 105 mL/min (>60); Estimated Creatinine Clearance 120.68 ml/min; Globulin 3.2 g/dL (2.2-4.2); Glucose 103 mg/dL (74-106); Lipase 111 U/L (73-393); Potassium 3.5 mmol/L (3.5-5.1); Protein, Total 7.3 g/dL (6.4-8.2); Sodium Level 139 mmol/L (136-145)
--- NOTE | 2020-08-31 14:53 | CT_ITS ---
STUDY: CT ABDOMEN AND PELVIS WITH CONTRAST REASON FOR EXAM: Male, 30 years old. Epigastric pain, n/v RADIATION DOSAGE (If Supplied By Facility): CTDIvol = ( 13.28 ) mGy, DLP = ( 740.56 ) mGycm TECHNIQUE: Transaxial images were obtained from the dome of the diaphragm to the symphysis pubis without oral contrast. IV 100mL Isovue-300 was administered. Sagittal and coronal images were reconstructed. Individualized dose optimization techniques were used for this CT. COMPARISON: None. FINDINGS: The visualized lung bases are unremarkable. The visualized portions of the heart are within normal limits. Normal liver. Normal gallbladder and extrahepatic biliary system. Normal spleen. Normal pancreas. Normal bilateral adrenal glands. Normal right kidney. Normal left kidney. Normal visualized stomach. Normal small intestine. A moderate amount of fecal material is seen. There are scattered colonic diverticula consistent with diverticulosis. There are surgical clips in the region of the appendix consistent with a prior appendectomy. Normal abdominal aorta. Normal inferior vena cava. There is borderline retroperitoneal lymphadenopathy with enlarged nodes no greater than 10mm in the short axis diameter. Normal urinary bladder. Normal abdominal wall. Mild degree of degenerative changes at the L5-S1 level. CT/Abdomen/Pelvis W IV Cont ONLY IMPRESSION: Scattered sigmoid diverticula. Electronically Signed: Easton Arriaga MD at 15:10 EDT , Service support ,
[2020-08-31] MEDS: LORazepam 2 MG/ML Syringe 1 MG IV (15:10)
[2020-08-31 16:11] VITALS: BP 126/87; PULSE 111; RESP 16; O2SAT 100
[2020-08-31 16:45] VITALS: BP 118/84; PULSE 105; RESP 16; O2SAT 100
== END 2020-08-31 16:50 | disposition home or self-care (01) ==
PROVIDERS: Emergency Provider Emergency Medicine; PCP Family Medicine
DX: R11.2 Nausea with vomiting, unspecified (principal); R53.1 Weakness; F41.9 Anxiety disorder, unspecified; F32.9 Major depressive disorder, single episode, unspecified; K21.9 Gastro-esophageal reflux disease without esophagitis; Z79.899 Other long term (current) drug therapy
CPT/HCPCS: 74177; 80053; 83690; 85025; 93005; 96361; 96374; 96375; 99284; J7030; J7040; Q9967; A4216; J2405

== ENCOUNTER 2021-01-28 18:54 | Emergency (ER) | payer OTHER, SELFPAY ==
[2021-01-28 18:55] VITALS: BP 124/84; PULSE 80; RESP 16; TEMP 36.1; O2SAT 100; BMI 24.2
== END 2021-01-28 19:16 | disposition left against medical advice (07) ==
LOC: ED 19:34
PROVIDERS: PCP Family Medicine
DX: K21.9 Gastro-esophageal reflux disease without esophagitis (principal)

== ENCOUNTER → 2021-02-01 20:08 | Outpatient (CLI) | payer OTHER, SELFPAY | PROVIDERS: PCP Family Medicine; Referring Provider Internal Medicine Pulmonary Disease; Visit Provider Internal Medicine Pulmonary Disease | DX: G47.10 Hypersomnia, unspecified (principal); Z79.899 Other long term (current) drug therapy | CPT/HCPCS: 95811 ==

== ENCOUNTER → 2021-02-02 08:07 | Outpatient (CLI) | payer OTHER, SELFPAY ==
[2021-02-02 10:06] LABS: Amphetamine Urine VISTA NEGATIVE (<1000 ng/mL); Barbiturate Urine VISTA NEGATIVE (< 200 ng/mL); Benzodiazepine Urine VISTA NEGATIVE (< 200 ng/mL); Cocaine Urine VISTA NEGATIVE (< 300 ng/mL); Ecstacy Urine VISTA NEGATIVE (< 500 ng/mL); Methadone Urine VISTA NEGATIVE (< 300 ng/mL); PCP Urine VISTA NEGATIVE (< 25 ng/mL); THC Urine VISTA NEGATIVE (< 50 ng/mL); Vista UDS pH Range 6
== END ==
PROVIDERS: PCP Family Medicine; Referring Provider Internal Medicine Pulmonary Disease; Visit Provider Internal Medicine Pulmonary Disease
DX: G47.10 Hypersomnia, unspecified (principal)
CPT/HCPCS: 80307; 95805

== ENCOUNTER 2021-04-22 18:15 | Outpatient (CLI) | payer OTHER, SELFPAY | END 2021-04-22 23:59 | disposition short-term general hospital (02) | PROVIDERS: PCP Family Medicine; Visit Provider Family Medicine | DX: Z20.822 Contact with and (suspected) exposure to COVID-19 (principal) | CPT/HCPCS: 87635; U0003; U0005 ==

== ENCOUNTER → 2021-08-10 | Outpatient (CLI) | payer OTHER, SELFPAY ==
[2021-08-10 15:10] LABS: Erythrocyte Sedimentation Rate 2 mm/hr (0-20)
[2021-08-10 15:13] LABS: Hematocrit 44.1 % (40-54); Hemoglobin 14.4 g/dL (13.0-16.5); Mean Corp Hgb Conc 32.7 g/dL (32-36); Mean Corpuscular Hgb 28.9 pg (27.0-32.0); Mean Corpuscular Volume 88.4 fL (80-94); Mean Platelet Vol. 10.3 fl (6.2-12.0); Platelet Count 240 K/mm3 (150-450); RBC Distribution Width CV 12.6 % (11.6-14.6); RBC Distribution Width SD 40.8 fl (35.1-43.9); Red Blood Count 4.99 M/mm3 (4.6-6.2); White Blood Count 5.5 K/mm3 (4.4-11.0)
[2021-08-10 16:06] LABS: ALB/GLOB Ratio 1.5 RATIO (0.9-2.4); AST(SGOT) 16 U/L (15-37); Alanine Aminotransfer ALT/SGPT 25 U/L (16-61); Albumin, Serum 4.3 g/dL (3.2-5.0); Alkaline Phosphatase 87 U/L (45-117); Anion Gap 5 (5-15); BUN 9 mg/dL (7-18); CRP < 2.90 mg/L (0.0-3.0); Calcium,Total 9.2 mg/dL (8.5-10.1); Chloride 102 mmol/L (98-107); EST Glomerular Filtration Rate 104 mL/min (>60); Est Glom Filt Rate - Afr Amer 126 mL/min (>60); Globulin 2.8 g/dL (2.2-4.2); Glucose 95 mg/dL (74-106); Potassium 4.1 mmol/L (3.5-5.1); Protein, Total 7.1 g/dL (6.4-8.2); Sodium Level 138 mmol/L (136-145); T4 Total, Thyroxin 9.6 ug/dL (4.5-12.1); Thyroid Stim Hormone (TSH) 0.83 uIU/mL (0.358-3.74)
[2021-08-13 18:07] LABS: Endomysial Antibody IgA Negative (Negative); Immunoglobulin A 64 mg/dL (90-386)
[2021-08-13 20:00] LABS: t-Transglutaminase IgA <2 U/mL (0-3)
== END | disposition home or self-care (01) ==
LOC: MTLAB 13:12
PROVIDERS: PCP Family Medicine; Referring Provider Internal Medicine Gastroenterology; Visit Provider Internal Medicine Gastroenterology
DX: R11.0 Nausea (principal); R63.4 Abnormal weight loss
CPT/HCPCS: 36415; 80053; 82784; 83516; 84436; 84443; 85027; 85652; 86140; 86255

== ENCOUNTER → 2021-09-22 | Outpatient (CLI) | payer OTHER, SELFPAY ==
[2021-09-24 15:29] LABS: Immunoglobulin G 589 mg/dL (603-1613)
== END | disposition home or self-care (01) ==
LOC: MTLAB 16:11
PROVIDERS: PCP Family Medicine; Referring Provider Internal Medicine Gastroenterology; Visit Provider Internal Medicine Gastroenterology
DX: R19.7 Diarrhea, unspecified (principal)
CPT/HCPCS: 36415; 82784; 83516

== ENCOUNTER → 2021-09-30 | Outpatient (CLI) | payer OTHER, SELFPAY | END | disposition home or self-care (01) | LOC: MTLAB 16:33 | PROVIDERS: PCP Family Medicine; Referring Provider Internal Medicine Gastroenterology; Visit Provider Internal Medicine Gastroenterology | DX: R19.7 Diarrhea, unspecified (principal) | CPT/HCPCS: 36415 ==

== ENCOUNTER → 2022-01-26 | Outpatient (CLI) | payer OTHER, SELFPAY ==
[2022-01-26 18:06] LABS: Absolute Lymphocyte Count 1.34 X10^3/uL (0.83-4.51); Absolute Neutrophil Count 2.9 X10^3/uL (2.0-7.7); Basophil# 0.02 X10^3/uL; Basophil% 0.4 % (0-1); Eosinophils% 2.1 % (0-5); Hematocrit 41.1 % (40-54); Hemoglobin 13.5 g/dL (13.0-16.5); Lymphocyte # 1.34 X10^3/ul (0.83-4.51); Lymphocyte % 27.6 % (19-41); Mean Corp Hgb Conc 32.8 g/dL (32-36); Mean Corpuscular Volume 88.4 fL (80-94); Mean Platelet Vol. 10.5 fl (6.2-12.0); Monocyte# 0.47 X10^3/uL; Monocyte% 9.7 % (0-10); NRBC Flagged by Analyzer 0 % (0-5); Neutrophil # 2.91 X10^3/uL (2.7-7.7); Neutrophil % 59.8 % (47-70); Platelet Count 203 K/mm3 (150-450); RBC Distribution Width CV 12.6 % (11.6-14.6); RBC Distribution Width SD 40.7 fl (35.1-43.9); Red Blood Count 4.65 M/mm3 (4.6-6.2); White Blood Count 4.9 K/mm3 (4.4-11.0)
[2022-01-26 18:33] LABS: Vitamin D,25 Hydroxy 31.5 ng/mL
[2022-02-05 08:08] LABS: IgG, Quant 549 mg/dL (603-1613); Immunoglobulin A 53 mg/dL (90-386); Immunoglobulin E 2 IU/mL (6-495); Immunoglobulin G, Subclass 1 260 mg/dL (248-810); Immunoglobulin G, Subclass 2 270 mg/dL (130-555); Immunoglobulin G, Subclass 3 13 mg/dL (15-102); Immunoglobulin G, Subclass 4 13 mg/dL (2-96)
[2022-02-05 10:32] LABS: Immunoglobulin M 66 mg/dL (20-172)
== END | disposition home or self-care (01) ==
PROVIDERS: PCP Family Medicine; Referring Provider Specialist; Visit Provider Specialist
DX: E55.9 Vitamin D deficiency, unspecified (principal); D84.9 Immunodeficiency, unspecified
CPT/HCPCS: 82306; 82784; 82785; 82787; 85025; 86609

== ENCOUNTER → 2022-04-06 | Outpatient (CLI) | payer OTHER, SELFPAY | END | disposition home or self-care (01) | PROVIDERS: PCP Family Medicine; Referring Provider Specialist; Visit Provider Specialist | DX: D84.9 Immunodeficiency, unspecified (principal) | CPT/HCPCS: 36415 ==

== ENCOUNTER → 2022-06-17 | Outpatient (CLI) | payer OTHER, SELFPAY ==
[2022-06-20 16:32] LABS: Giardia Lamblia, Stool EIA Negative (Negative)
== END | disposition home or self-care (01) ==
PROVIDERS: PCP Family Medicine; Visit Provider Specialist
DX: A09 Infectious gastroenteritis and colitis, unspecified (principal)
CPT/HCPCS: 87177; 87209; 87329

== ENCOUNTER → 2022-06-19 | Outpatient (CLI) | payer OTHER, SELFPAY ==
[2022-06-19 08:23] LABS: Glucose GTT- Fasting 98 mg/dL (74-106)
[2022-06-19 08:24] LABS: Glucose GTT-30 minutes 138 mg/dL (110-170)
[2022-06-19 09:30] LABS: Glucose GTT- 1 Hour 98 mg/dL (120-170)
[2022-06-19 09:57] LABS: Glucose GTT- 2 Hour 93 mg/dL (70-120)
[2022-06-19 11:22] LABS: Glucose GTT- 3 Hour 87 mg/dL (74-106)
== END | disposition home or self-care (01) ==
PROVIDERS: PCP Family Medicine; Referring Provider Psychiatry & Neurology Neurology; Visit Provider Psychiatry & Neurology Neurology
DX: E16.2 Hypoglycemia, unspecified (principal)
CPT/HCPCS: 36415; 82951; 82952

== ENCOUNTER 2023-08-08 10:03 | Emergency (ER) | payer OTHER, SELFPAY ==
[2023-08-08 10:04] VITALS: BP 119/99; PULSE 113; RESP 18; TEMP 35.8; O2SAT 100
--- NOTE | 2023-08-08 10:17 | ED.VIS.BACK ---
HPI History of Present Illness Chief Complaint: Back [facility] Medical History (Updated 08/08/23 @ 11:[address] Tomy Pedraza, DO) Central sleep apnea Migraines Palpitations Tachycardia GERD (gastroesophageal reflux disease) Anxiety and depression Maxillary sinusitis, acute Chronic neck and back pain Rosacea Home Medications ?Medication ?Instructions ?Recorded ?Last Taken ?Type pantoprazole 40 mg tablet,delayed 40 mg PO DAILY 12/19/19 Unknown History release gzgvycly-gfspvoxc-pproa acid 400 1 tab PO DAILY 12/22/19 Unknown History mcg-vit K 20 mcg-lycop 300 mcg tablet (Men's Multivitamin) oxycodone 5 mg capsule 5 mg PO Q6H PRN pain 3 days #12 08/08/23 Unknown Rx caps oxycodone 5 mg capsule 5 mg PO Q6H PRN pain 3 days #12 08/08/23 Unknown Rx caps oxycodone 5 mg capsule 5 mg PO Q6H PRN pain 3 days #12 08/08/23 Unknown Rx caps Allergy/AdvReac Type Severity Reaction Status Date / Time tetracycline Allergy Mild unknown Verified 08/08/23 10:04 Family History Mother Breast cancer Grandfather Cancer Grandmother Cancer Surgical History History of endoscopy History of back surgery Social History Smoking Status: Never smoker alcohol intake: never substance use type: does not use caffeine: Yes Type: carbonated beverages and coffee Number of servings: 2 EXAM Physical Exam Const Vital Signs: 08/08/23 10:04 Temperature 96.4 F L Temperature Source Temporal Pulse Rate 113 H Respiratory Rate 18 Blood Pressure 119/99 H Blood Pressure Mean 105 Pulse Ox 100 Oxygen Delivery Method Room Air MDM MDM MDM Narrative Medical decision making narrative: HISTORY OF PRESENT ILLNESS: 33-year-old male presents with back pain. Patient states he is has history of degenerative disc disease and start experiencing back pain. No falls, trauma, no fever. Patient denies any saddle anesthesia, urinary tension, bowel or bladder incontinence, lower extremity weakness, fever or IV drug use, no recent spinal manipulation or surgery, no recent urinary catheterization. REVIEW OF SYSTEMS: All other systems reviewed and are negative except as noted in the history of present illness. At least 10 review of systems reviewed and are negative except as noted in history of present illness. PHYSICAL EXAM: Nursing triage notes reviewed, Vital signs reviewed Constitutional: please see [facility] HENT: MMM Eyes: Pupils equal round and reactive to light, Extraocular muscles intact Neck: No stridor, no JVD, full neck ROM Lungs: Clear to auscultation, No wheezing or rales. No increased work of breathing, no conversational dyspnea, no accessory muscle use, no nasal flaring. No respiratory distress noted Heart: Regular rate and rhythm, No murmurs, No rubs and No gallops, 2+ distal pulses (radial, femoral, posterior tibial) in all extremities Abdomen: Soft, there is no tenderness, rigidity, rebound or guarding, no obvious peritoneal signs, no palpable pulsatile abdominal masses, no auscultated abdominal bruit : No CVAT Extremities: No edema Back: No midline step-offs or deformities Neuro: Intact sensation L1-S1 dermatomal distributions. Intact 5/5 strength in hip flexion (T12-L3). Knee extension (L2-L4). Ankle dorsiflexion (L4-L5). Ankle plantar flexion (S1). Great toe extension (L5). 2+ patellar and Achilles DTRs. Skin: No rash or lesions noted MEDICAL DECISION MAKING: Chief Complaint: Back pain External records reviewed: Imaging reviewed: X-ray of the lumbar spine from 2017 shows no acute abnormality Factors affecting care: Degenerative disc disease Social determinants of health: No IV drug use History obtained from others: none Consults: none [facility] Narrative: The patient was initially tachycardic otherwise hemodynamically stable afebrile and nontoxic-appearing. No midline step-offs or deformities I considered the following differential diagnosis: Musculoskeletal back pain, space-occupying lesion of the spinal (epidural abscess, epidural hematoma), cauda equina, conus medullaris, fracture dislocation, AAA, nephrolithiasis, pyelonephritis, aortic dissection The patient presented complaining of back pain. There was no history of recent fall or trauma. There was no evidence to support genitourinary etiology. There is also no evidence to suggest vascular pathology such as AAA dissection. No fevers or other evidence to suspect infectious processes, abscess, osteomyelitis etc. The patient?s neurological exam is normal with normal motor and sensory. There is no saddle paresthesias reported and no bowel or bladder incontinence or retention. I suspect the pain is mechanical in nature. Clinical suspicion, plan of care and management was discussed with the patient. The patient was instructed to follow up with their health care provider. The patient was also instructed to return if the pain worsened, changed, or developed weakness or bowel or bladder trouble. The patient agreed with plan. I completed a structured, evidence-based clinical evaluation to screen for acute non-traumatic spinal emergencies. The patient has a normal detailed neurologic exam and red flag historical factors were negative. The evidence indicates that the patient is very low risk for an acute spinal emergency and this is consistent with my clinical intuition. The risk of further workup is higher than the likelihood of the patient having a spinal epidural abscess or other dangerous emergency spinal condition. It is, therefore, in the patient?s best interest not to do additional emergent testing at this time. Shared Decision-Making I have discussed with the patient my clinical impression and the result of an evidence-based clinical evaluation to screen for spinal epidural abscess and other spinal emergencies, as well as the risk of further testing and hospitalization. The evidence shows that the risk for an acute spinal emergency is less than 1%. Although the risk of an acute spinal emergency has not been completely eliminated, the risks of further testing likely exceed any potential benefit, and the patient agrees with not pursuing further emergent evaluation for causes of back pain at this time. The patient and/or family, caregivers express understanding. The patient and/or family, caregivers agrees with the plan. Total critical care time today provided was at least 0 minutes. This excludes separately billable procedures. Critical care time (if documented) is secondary to the patient having high probability of clinically significant/life threatening deterioration in the patient's condition which required my urgent intervention. Impression: 1. Acute back pain 2. Lumbar radiculopathy Dispo: dc home Tomy Pedraza DO Discharge Plan Triage Chief Complaint: Back ED Provider: Tomy Pedraza Dx/Rx/DC Orders Clinical Impression: Acute back pain Instructions: ED Back Pain (Acute or Chronic) Prescriptions: New oxycodone 5 mg capsule 5 mg PO Q6H PRN (Reason: pain) 3 Days Qty: 12 0RF oxycodone 5 mg capsule 5 mg PO Q6H PRN (Reason: pain) 3 Days Qty: 12 0RF oxycodone 5 mg capsule 5 mg PO Q6H PRN (Reason: pain) 3 Days Qty: 12 0RF No Action Men's Multivitamin 400-20-300 mcg tablet 1 tab PO DAILY pantoprazole 40 mg tablet,delayed release (DR/EC) 40 mg PO DAILY Primary Care Provider: Sona Craft Referrals: Sona Craft MD [Primary Care Provider] - Activity Restrictions/Additional Instructions: Thank you for trusting us with your care today! You have been diagnosed with sciatica or lumbar radiculopathy. This process is media by inflammation show please take anti-inflammatories as prescribed. Please take Tylenol (2 pills, 650 mg), ibuprofen (2 pills, 400 mg) every 6 hours as needed for pain and fever control. Please go to local pharmacy or drugstore and obtain lidocaine Patches (Salonpas). Apply these as directed. If the above regimen does not control your pain please take oxycodone as prescribed. Please return to the emergency department if your symptoms change or worsen. Please follow with your primary care physician for further outpatient evaluation and management. Print Language: Upper Sorbian Disposition Disposition: Home, Self Care
[2023-08-08] MEDS: Ibuprofen 200 MG Tablet 400 MG PO (10:51)
[2023-08-08] MEDS: predniSONE 20 MG Tablet 40 MG PO (10:51)
[2023-08-08] MEDS: oxyCODONE 5 MG Tablet PO (10:51)
[2023-08-08] MEDS: Lidocaine 5% Patch 1 PATCH TOPICAL (10:52)
[2023-08-08 12:21] VITALS: BP 123/78; PULSE 88; RESP 18; TEMP 36.5; O2SAT 100
== END 2023-08-08 12:22 | disposition home or self-care (01) ==
PROVIDERS: Emergency Provider Emergency Medicine; PCP Family Medicine; Visit Provider Emergency Medicine
DX: M54.16 Radiculopathy, lumbar region (principal); K21.9 Gastro-esophageal reflux disease without esophagitis
CPT/HCPCS: 99283

== ENCOUNTER → 2023-08-10 | Outpatient (CLI) | payer OTHER, SELFPAY ==
--- NOTE | 2023-08-10 15:29 | RAD_ITS ---
HISTORY: pain. TECHNIQUE: XR Spine Lumbar Comp W/ Bending Min 6 Views. COMPARISON: None. FINDINGS: VERTEBRAE: Vertebral body heights preserved. Posterior elements appear intact. ALIGNMENT: No significant anterior or posterior subluxation. INTERVERTEBRAL DISCS: Disc spaces maintained. SOFT TISSUES: Moderate stool throughout the colon. RAD/L/S Spine w Bend Min 6 Vw IMPRESSION: No acute fracture or dislocation identified in the lumbar spine. Electronically Signed: Aruna Barba MD at 15:34 EDT ,
== END | disposition home or self-care (01) ==
LOC: MTRAD 15:29
PROVIDERS: PCP Family Medicine; Referring Provider Family Medicine; Visit Provider Family Medicine
DX: M54.9 Dorsalgia, unspecified (principal)
CPT/HCPCS: 72114

== ENCOUNTER → 2023-12-13 | Outpatient (CLI) | payer OTHER, SELFPAY ==
--- NOTE | 2023-12-13 15:32 | MRI_ITS ---
STUDY: MRI LUMBAR SPINE WITHOUT CONTRAST REASON FOR EXAM: Male, 33 years old. RADICULOPATHY TECHNIQUE: Standardized fat and water weighted pulse sequences were obtained in the sagittal and axial planes. COMPARISON: 08/10/2023 FINDINGS: T12-L1: Normal endplates. Normal disc height, hydration and morphology. Normal bilateral facet joints. Normal central canal and bilateral lateral recesses. Normal bilateral intervertebral neural foramina. Normal lumbar lordosis. There is no substantial scoliosis. Normal conus medullaris that terminates at the T12. L1-2: Normal endplates. Normal disc height, hydration and morphology. Normal bilateral facet joints. Normal central canal and bilateral lateral recesses. Normal bilateral intervertebral neural foramina. L2-3: Normal endplates. Normal disc height, hydration and morphology. Normal bilateral facet joints. Normal central canal and bilateral lateral recesses. Normal bilateral intervertebral neural foramina. L3-4: Normal endplates. Normal disc height, hydration and morphology. Normal bilateral facet joints. Normal central canal and bilateral lateral recesses. Normal bilateral intervertebral neural foramina. L4-5: Status post right laminectomy. Mild bilateral facet hypertrophy and ligament flavum hypertrophy. No disc protrusion, spinal stenosis, or neural foraminal stenosis. L5-S1: Mild bilateral facet hypertrophy and ligament hypertrophy. 5 mm retrolisthesis of L5 on S1 with a moderate broad disc protrusion produces severe spinal stenosis with moderate bilateral lateral recess stenosis and moderate bilateral neural foraminal stenosis. Normal visualized sacral ala. Normal visualized paraspinous soft tissue structures. MRI/Spine Lumbar (Routine) IMPRESSION: Postsurgical changes and degenerative disc disease as described above. Electronically Signed: Víctor Henry MD at 11:57 EDT ,
== END | disposition home or self-care (01) ==
LOC: MRI 15:30
PROVIDERS: PCP Family Medicine; Referring Provider Family Medicine; Visit Provider Family Medicine
DX: M54.41 Lumbago with sciatica, right side (principal)
CPT/HCPCS: 72148

== ENCOUNTER → 2024-04-02 | Outpatient (CLI) | payer OTHER, SELFPAY ==
--- NOTE | 2024-04-02 19:02 | CT_ITS ---
STUDY: CT LUMBAR SPINE WITHOUT CONTRAST REASON FOR EXAM: Male, 34 years old. Low back pain. RADIATION DOSAGE (If Supplied By Facility): CTDIvol = ( 14.35 ) mGy, DLP = ( 470.80 ) mGycm TECHNIQUE: The patient was scanned in a multi detector CT scanner. High resolution transaxial imaging was performed. Images were obtained from L1 to S1 level. Sagittal and coronal images were reconstructed. Individualized dose optimization techniques were used for this CT. COMPARISON: None FINDINGS: Normal lumbar lordosis. There is no substantial scoliosis. Normal vertebrae of the lumbar spine. L1-2: Normal endplates. Normal disc height and morphology. Normal bilateral facet joints. Normal central canal and bilateral lateral recesses. Normal bilateral intervertebral neural foramina. L2-3: Normal endplates. Normal disc height and morphology. Normal bilateral facet joints. Normal central canal and bilateral lateral recesses. Normal bilateral intervertebral neural foramina. L3-4: Normal endplates. Normal disc height and morphology. Normal bilateral facet joints. Normal central canal and bilateral lateral recesses. Normal bilateral intervertebral neural foramina. L4-5: Mild degree of disc space narrowing. Mild degree of bilateral neural foraminal stenosis. Status post right laminectomy. L5-S1: Mild degree of disc space narrowing with retrolisthesis of L5 on S1. Posterior spondylosis. This causes central canal narrowing worse on the left side of the midline. Normal visualized paraspinous soft tissue structures. CT/Spine Lumbar without Contrast IMPRESSION: Multilevel degenerative changes, as described above. Electronically Signed: Easton Arriaga MD at 15:26 EST ,
== END | disposition home or self-care (01) ==
LOC: CT 19:01
PROVIDERS: PCP Family Medicine; Referring Provider Orthopaedic Surgery Orthopaedic Surgery of the Spine; Visit Provider Orthopaedic Surgery Orthopaedic Surgery of the Spine
DX: M51.362 Other intervertebral disc degeneration, lumbar region with discogenic back pain and lower extremity pain (principal); M51.26 Other intervertebral disc displacement, lumbar region
CPT/HCPCS: 72131

== ENCOUNTER 2024-04-21 12:00 | Outpatient (RCR) | payer OTHER, SELFPAY ==
--- NOTE | 2024-03-28 09:55 | HP.PTEVAL ---
Patient's Visit Information Visit Information Visit Information: ALIVIA DURAN is a 34 year old M referred to Physical Therapy by Dr. Fly Sharma MD with a diagnosis of LUMBAR RADICULOPATHY. Date of Evaluation: 03/28/24 Physical Therapist: Solitario Srinivasan, PT, Cert MDT, OCS Visit Plan Frequency: 2x /Week Duration: 4 Weeks Plan: PT INTERVENTIONS NIKOLE EX'S ,DLS ,POSTURAL EX'S , LE FLEXABILITY ( ANR RIGHT) ,MODALTIES AND POSTURE/BODY MECHANICS Subjective Subjective: This 33 year old here for physical therapy for lumbar radiculopathy. Patient notes that he has had pain for about a year. He has had multiple flare ups that has sent him to the ER. Patient complains of radiating pain He does have back pain if he is carrying something. He notes that the radiating pain down his lateral right leg all the way to his toes. Says that his toes cramp more frequent. Patient has weakness and is unable to stand up on right toes. Patient had lumbar spine surgery disectomy around 2008 at the [facility] for a possible laminectomy. Seen DR recommended PT and pain management. No medication except oxycodone. Plan for CT SCAN to see if calcification. MRI showed mild bilateral facet hypertrophy and ligament hypertrophy. 5 mm retrolisthesis of L5 on S1 with a moderate broad disc protrusion produces severe spinal stenosis with moderate bilateral lateral recess stenosis and moderate bilateral neural foraminal stenosis.Aggravating factors sitting ,lifting ,bending. Alleviating walking/standing . Coughing/sneezing-. Patient has paresthesia/tingling toes. Symptom s affects sleeping. Patient condition affects QOL and function/job demands. Patient goals to decrease pain. SOCIAL: VOCATION: Security Pain Right Lower Extremity: Pain Intensity (Out of 10): 5 Pain Intensity Range: 10 Comment: lateral leg Bilateral Back: Pain Intensity (Out of 10): 5 Pain Intensity Range: 10 Objective Objective: POSTURE: WFL GAIT: reciprocal pattern NEURO: c/o paresthesia/tingling , reflexes L3-4,L4-5,L5-S1 2/3 PALPATION: unremarkable SYMMETRIES: align FLEXABILITY: mod tight right with + ANR LUMBAR ROM: flexion min loss ,extension min loss ,side glides min loss MMT: quads/hams/hip 4/5 ,DF 4/5 ,right G-S 4-/5 unable to perform single leg calf raise Special Tests L/S Slump test left side: Negative L/S Slump test right side: Negative L/S Left Straight Leg Raise: Negative L/S Right Straight Leg Raise: Negative Lumbar Standing: Flexion - Mechanical Response: No effect Lumbar Standing: Flexion - Symptoms During Testing: Produces Lumbar Standing: Flexion - Symptoms After Testing: No worse Lumbar Standing: Extension - Mechanical Response: No effect Lumbar Standing: Extension - Symptoms During Testing: Decreases Lumbar Standing: Extension - Symptoms After Testing: No better Lumbar Standing: Right Side Glides - Mechanical Response: No effect Lumbar Standing: Right Side [place] - Symptoms During Testing: No effect Lumbar Standing: Right Side [place] - Symptoms After Testing: No effect Lumbar Standing: Left Side [place] - Mechanical Response: No effect Lumbar Standing: Left Side [place] - Symptoms During Testing: No effect Lumbar Standing: Left Side [place] - Symptoms After Testing: No effect Lumbar Lying: Flexion - Mechanical Response: No effect Lumbar Lying: Flexion - Symptoms During Testing: No effect Lumbar Lying: Flexion - Symptoms After Testing: No effect Lumbar Lying: Extension - Mechanical Response: No effect Lumbar Lying: Extension - Symptoms During Testing: Decreases Lumbar Lying: Extension - Symptoms After Testing: No better Balance/Special Test Scores Oswestry Low Back Score: 27 Goals Goal 1:: Patient to be I with HEP for back Goal Time Frame: 4-6 Weeks Goal 2:: Patient to improve lumbar ROM for function of recovery without symptomology Goal Time Frame: 4-6 Weeks Goal 3:: Patient to demonstrate 50% improvement with less pain and improved function Goal Time Frame: 4-6 Weeks Goal 4:: Patient to improve back oswestry score by 5 points to improve QOL and function Goal Time Frame: 4-6 Weeks Goal 5:: Patient be able to perform ADLS and housework tasks sitting postures at work with reduction of symproms Goal Time Frame: 6-8 Weeks Rehabilitation Potential Physical Therapy Diagnosis: This patient has lumbar radiculopathy with HNP with severe stenosis with pain with positioning and motion testing thus benefit from skilled PT Rehabilitation Potential: Good Anticipated Interventions Patient/Client Instruction: Educate patient on: Condition and Plan of Care For the Purpose of:: To decrease pain, To increase ROM, To improve muscle performance and motor function, To improve ability to perform ADL's, To increase tolerance to activity/condition/position, To improve ability of physical actions for home/community/work/leisure, To improve health of tissue, To decrease soft tissue restriction and To increase flexibility/ROM Therapeutic Exercise to Include: Strength training, Postural training, Flexibilty training, Dynamic Lumbar Stabilization and Nikole Exercises For the Purpose of:: To decrease pain, To increase ROM, To improve muscle performance and motor function, To improve ability to perform ADL's, To increase tolerance to activity/condition/position, To improve ability of physical actions for home/community/work/leisure, To improve health of tissue, To decrease soft tissue restriction, To increase flexibility/ROM and To improve tolerance to ADL's TENS: Yes IF ES: Yes Thermo therapy (hot pack): Yes Ultrasound (thermal/non thermal): Yes For the Purpose of:: To decrease pain, To increase ROM, To improve nutrient delivery to tissue and To increase oxygenation perfusion Text: Thank you for the opportunity to evaluate your patient. For Medicare and Medicare HMO plans, please review the plan of care and approve it. It will need to be FAXED BACK to us at [phone] for Medicare purposes. For Medicare only, by signing this I certify the plan of care. Please let me know if there are questions or concerns regarding this plan of care. Physician Signature: Date:
--- NOTE | 2024-07-30 10:11 | HP.PT.NRP ---
Patient Information Patient Information: ALIVIA DURAN was seen in my office for initial evaluation on 03/28/24. The following Plan of Care was established for this patient: POC Established Initial Frequency: 2x /Week Initial Duration: 4 Weeks Anticipated Interventions Patient/Client Instruction: Educate patient on: Condition and Plan of Care For the Purpose of:: To decrease pain, To increase ROM, To improve muscle performance and motor function, To improve ability to perform ADL's, To increase tolerance to activity/condition/position, To improve ability of physical actions for home/community/work/leisure, To improve health of tissue, To decrease soft tissue restriction and To increase flexibility/ROM Therapeutic Exercise to Include: Strength training, Postural training, Flexibilty training, Dynamic Lumbar Stabilization and [place] Exercises For the Purpose of:: To decrease pain, To increase ROM, To improve muscle performance and motor function, To improve ability to perform ADL's, To increase tolerance to activity/condition/position, To improve ability of physical actions for home/community/work/leisure, To improve health of tissue, To decrease soft tissue restriction, To increase flexibility/ROM and To improve tolerance to ADL's TENS: Yes IF ES: Yes Thermo therapy (hot pack): Yes Ultrasound (thermal/non thermal): Yes For the Purpose of:: To decrease pain, To increase ROM, To improve nutrient delivery to tissue and To increase oxygenation perfusion Last Seen Last Seen: This patient was last seen in our office . Pertinent comments regarding their Physical therapy will appear below: Patient was seen for PT for lumbar radiculopathy with HEP patsy ex's and DLS program At this point I will be discontinuing this patient from physical therapy. I would be happy to see this patient again in the future if found appropriate by the physician. Thank you! Solitario Srinivasan, PT, Cert MDT, OCS Balance/Gait/Functional tests Balance/Special Test Scores Oswestry Low Back Score: 27
== END 2024-04-21 19:00 | disposition home or self-care (01) ==
LOC: PT 12:00
PROVIDERS: PCP Family Medicine; Referring Provider Orthopaedic Surgery Orthopaedic Surgery of the Spine; Visit Provider Orthopaedic Surgery Orthopaedic Surgery of the Spine
DX: M54.16 Radiculopathy, lumbar region (principal)
CPT/HCPCS: 97110; 97162